=== PATIENT | male | born 1960 | race African-American/Black ===

== ENCOUNTER 2018-02-25 01:11 | Inpatient (IN) | payer MEDICAID, OTHER ==
[~2018-02-25] VITALS: Ht 177.8 cm; Wt 57.2 kg
[~2018-02-25 01:11] MED LIST: HUMULIN 70/30; METFORMIN PO; UNK HTN MED
[2018-02-25] MEDS ORDERED: INSLAN SQ (02:51)
[2018-02-25] MEDS ORDERED: AMIT10TA6 PO (02:51)
[2018-02-25] MEDS ORDERED: PROP10TA73 PO (02:57)
[2018-02-25 03:22] LABS: AMPHET/METH SCREEN,URINE NEGATIVE (NEGATIVE); BARBITURATE SCREEN, URINE NEGATIVE (NEGATIVE); BENZODIAZEPINES SCREEN,URINE NEGATIVE (NEGATIVE); CANNABINOID SCREEN,URINE POSITIVE (NEGATIVE); COCAINE SCREEN,URINE NEGATIVE (NEGATIVE); METHADONE SCREEN, URINE NEGATIVE (NEGATIVE); OPIATE SCREEN,URINE NEGATIVE (NEGATIVE)
[2018-02-25 03:25] LABS: PHENCYCLIDINE SCREEN,URINE NEGATIVE (NEGATIVE)
[2018-02-25] MEDS ORDERED: HALOPERIDOL 5 MG TABLET PO PRN (03:30)
[2018-02-25] MEDS ORDERED: ZOLPIDEM TARTRATE 10 MG TABLET PO PRN (03:30)
[2018-02-25 03:49] LABS: GLUCOSE,POINT OF CARE 168 MG/DL (70-110)
[2018-02-25] MEDS ORDERED: CloNIDine HCL 0.1 MG TABLET PO ONE (04:00)
[2018-02-25 04:14] LABS: EOSINOPHILS % (AUTO) 1.1 % (1.0-6.0); HEMATOCRIT 43.7 % (41-53); HEMOGLOBIN 14.5 g/dL (13.5-17.5); LYMPHOCYTES # (AUTO) 1.9 K/uL (1.0-4.8); LYMPHOCYTES % (AUTO) 23.6 % (22.0-44.0); MEAN CORPUSCULAR HEMOGLOBIN 29.7 pg (26.0-34.0); MEAN CORPUSCULAR HGB CONC 33.3 G/dL (31.0-37.0); MEAN CORPUSCULAR VOLUME 89 fL (80-100); MONOCYTES # (AUTO) 0.4 K/uL (0.1-1.0); MONOCYTES % (AUTO) 4.6 % (2.0-9.0); NEUTROPHILS # (AUTO) 5.5 K/uL (1.8-7.7); NEUTROPHILS % (AUTO) 69.7 % (40.0-70.0); PLATELET COUNT (AUTO) 255 K/uL (150-450)
[2018-02-25 04:21] LABS: ANION GAP 11 mmol/L (8-16); CALCIUM, TOTAL 9.9 mg/dL (8.8-10.5); CARBON DIOXIDE 27 mmol/L (22-29); CHLORIDE 102 mmol/L (98-107); CREATININE 1.12 mg/dL (0.60-1.30); GLOMERULAR FILTR. RATE CALC > 60 mL/min (>60); GLUCOSE,RANDOM 159 mg/dL (70-110); SODIUM SERUM 140 mmol/L (136-145); UREA NITROGEN, BLOOD 15 mg/dL (7-18)
[2018-02-25 04:24] LABS: ALANINE AMINOTRANSFERASE 20 U/L (12-78); ALBUMIN 4.3 g/dL (3.4-5.0); ALKALINE PHOSPHATASE 149 U/L (46-116); ASPARTATE AMINOTRANSFERASE 19 U/L (15-37); BILIRUBIN,TOTAL 0.4 mg/dL (0.1-1.0); TOTAL PROTEIN, SERUM 8.2 g/dL (6.4-8.2)
[2018-02-25 07:09] VITALS: BP 157/98
[2018-02-25 07:29] LABS: GLUCOMETER DEV NAME(LOC) BV3N5; GLUCOSE,POINT OF CARE 139 MG/DL (70-110)
[2018-02-25] MEDS ORDERED: PNEUMOCOCCAL VACCINE POLYVALENT 0.5 ML VIAL [PPSV23] IM ONE (07:30)
[2018-02-25] MEDS ORDERED: AmLODIPine BESYLATE 5 MG TABLET PO ONE ×2 (07:30→11:15)
[2018-02-25 08:11] VITALS: BP 152/67
[2018-02-25 10:13] VITALS: BP 162/87
[2018-02-25] MEDS: QUEtiapine FUMARATE 25 MG TABLET PO SCH ×2 (10:31→17:30)
[2018-02-25] MEDS ORDERED: AmLODIPine BESYLATE 2.5 MG TABLET PO ONE (11:00)
[2018-02-25] MEDS ORDERED: GLUCAGON,HUMAN RECOMBINANT 1 MG VIAL IM PRN (11:15)
[2018-02-25] MEDS ORDERED: METF-960 PO (11:16)
[2018-02-25] MEDS: INSULIN LISPRO 100 UNITS/ML SQ PRN ×3 (12:08→21:14)
[2018-02-25 12:14] LABS: GLUCOMETER DEV NAME(LOC) BV3N5; GLUCOSE,POINT OF CARE 156 MG/DL (70-110)
[2018-02-25 16:11] VITALS: BP 146/80
[2018-02-25] MEDS: LORazepam 2 MG TABLET PO PRN (17:30)
[2018-02-25 17:45] LABS: GLUCOMETER DEV NAME(LOC) BV3N5; GLUCOSE,POINT OF CARE 148 MG/DL (70-110)
[2018-02-25] MEDS: AMITRIPTYLINE HCL 50 MG TABLET PO SCH (20:23)
[2018-02-25 21:23] LABS: GLUCOMETER DEV NAME(LOC) BV2S 2; GLUCOSE,POINT OF CARE 169 MG/DL (70-110)
[2018-02-26 06:30] VITALS: BP 141/86
[2018-02-26 06:44] LABS: GLUCOMETER DEV NAME(LOC) BV2S 2; GLUCOSE,POINT OF CARE 156 MG/DL (70-110)
[2018-02-26] MEDS: INSULIN LISPRO 100 UNITS/ML SQ PRN ×2 (07:21→11:52)
[2018-02-26] MEDS: QUEtiapine FUMARATE 25 MG TABLET PO SCH ×4 (08:30→16:20)
[2018-02-26] MEDS: AmLODIPine BESYLATE 5 MG TABLET PO SCH ×3 (08:30→10:45)
[2018-02-26] MEDS: NICOTINE 21 MG/24 HOUR PATCH TD SCH ×2 (09:00→10:45)
[2018-02-26 09:42] VITALS: BP 139/88
[2018-02-26] MEDS ORDERED: GuaiFENesin/D-METHORPHAN [SUGAR-FREE] 200-20MG/10 ML SYRUP UDCUP PO PRN (10:45)
[2018-02-26] MEDS ORDERED: MAG HYDROX/AL HYDROX/SIMETH ES 30 ML SUSPENSION UDCUP PO PRN (10:45)
[2018-02-26] MEDS ORDERED: IBUPROFEN 400 MG TABLET PO PRN (10:45)
[2018-02-26] MEDS ORDERED: ONDANSETRON HCL 4 MG TABLET PO PRN (10:45)
[2018-02-26] MEDS ORDERED: ACETAMINOPHEN 325 MG TABLET PO PRN (10:45)
[2018-02-26] MEDS ORDERED: LOPERAMIDE HCL 2 MG CAPSULE PO PRN (10:45)
[2018-02-26] MEDS ORDERED: PETROLATUM,WHITE 71 GM JELLY TP PRN (10:45)
[2018-02-26] MEDS ORDERED: DOCUSATE SODIUM 100 MG CAPSULE PO PRN (10:45)
[2018-02-26] MEDS ORDERED: CloNIDine HCL 0.1 MG TABLET PO PRN (10:45)
[2018-02-26] MEDS ORDERED: MAGNESIUM HYDROXIDE SUSPENSION 30 ML UDCUP PO PRN (10:45)
[2018-02-26] MEDS ORDERED: NICOTINE 14 MG/24 HOUR PATCH TD PRN (10:45)
[2018-02-26] MEDS ORDERED: ALBUTEROL SULFATE HFA 90 MCG/PUFF 8 GM INHALER IH PRN (10:45)
[2018-02-26 10:54] LABS: GLUCOMETER DEV NAME(LOC) BV2S 2; GLUCOSE,POINT OF CARE 143 MG/DL (70-110)
[2018-02-26 16:11] VITALS: BP 130/80
[2018-02-26 16:34] LABS: GLUCOMETER DEV NAME(LOC) BV2S 2; GLUCOSE,POINT OF CARE 121 MG/DL (70-110)
[2018-02-26] MEDS: AMITRIPTYLINE HCL 50 MG TABLET PO SCH (20:23)
[2018-02-27 00:58] VITALS: BP 135/80
[2018-02-27] MEDS: INSULIN LISPRO 100 UNITS/ML SQ PRN ×3 (07:04→16:27)
[2018-02-27] MEDS: QUEtiapine FUMARATE 25 MG TABLET PO SCH (08:14)
[2018-02-27] MEDS: AmLODIPine BESYLATE 5 MG TABLET PO SCH (08:14)
[2018-02-27] MEDS: NICOTINE 21 MG/24 HOUR PATCH TD SCH (08:19)
[2018-02-27 09:11] VITALS: BP 171/109
[2018-02-27] MEDS: LORazepam 2 MG TABLET PO PRN (09:44)
[2018-02-27 10:07] VITALS: BP 110/55
[2018-02-27 11:31] LABS: GLUCOMETER DEV NAME(LOC) BV2S 2; GLUCOSE,POINT OF CARE 189 MG/DL (70-110)
[2018-02-27 11:32] LABS: GLUCOMETER DEV NAME(LOC) BV2S 2; GLUCOSE,POINT OF CARE 141 MG/DL (70-110)
[2018-02-27 11:32] LABS: GLUCOMETER DEV NAME(LOC) BV2S 2; GLUCOSE,POINT OF CARE 144 MG/DL (70-110)
[2018-02-27 16:09] VITALS: BP 150/72
[2018-02-27] MEDS: QUEtiapine FUMARATE 100 MG TABLET PO SCH (16:21)
[2018-02-27 16:34] LABS: GLUCOMETER DEV NAME(LOC) BV2S 2; GLUCOSE,POINT OF CARE 142 MG/DL (70-110)
[2018-02-27] MEDS: AMITRIPTYLINE HCL 50 MG TABLET PO SCH (21:03)
[2018-02-27 21:29] LABS: GLUCOMETER DEV NAME(LOC) BV2S 2; GLUCOSE,POINT OF CARE 84 MG/DL (70-110)
[2018-02-28 06:25] LABS: GLUCOMETER DEV NAME(LOC) BV2S 2; GLUCOSE,POINT OF CARE 80 MG/DL (70-110)
[2018-02-28 06:40] VITALS: BP 127/85
[2018-02-28] MEDS ORDERED: MetFORMIN HCL 500 MG TABLET PO SCH (07:00)
[2018-02-28 08:46] VITALS: BP 121/83
[2018-02-28] MEDS: NICOTINE 21 MG/24 HOUR PATCH TD SCH (08:49)
[2018-02-28] MEDS: AmLODIPine BESYLATE 5 MG TABLET PO SCH (08:49)
[2018-02-28] MEDS: QUEtiapine FUMARATE 100 MG TABLET PO SCH (08:49)
[2018-02-28 11:29] LABS: GLUCOMETER DEV NAME(LOC) BV2S 2; GLUCOSE,POINT OF CARE 145 MG/DL (70-110)
[2018-02-28] MEDS: INSULIN LISPRO 100 UNITS/ML SQ PRN (11:29)
[2018-02-28] MEDS ORDERED: QUET100T PO (12:23)
[2018-02-28] MEDS ORDERED: AMIT50TA3 PO (12:23)
[2018-02-28] MEDS ORDERED: METF-960 PO ×2 (12:23→12:31)
[2018-02-28] MEDS ORDERED: AMLO-511 PO (12:23)
== END 2018-02-28 13:25 | disposition home or self-care (01) | DRG 753 ==
LOC: EMS 01:12 → B3A 04:00 → B2S 18:00
PROVIDERS: ADMIT Psychiatry & Neurology Psychiatry; ATTEND Psychiatry & Neurology Psychiatry
DX: F31.32 Bipolar disorder, current episode depressed, moderate (principal); R45.850 Homicidal ideations; R45.851 Suicidal ideations; I10 Essential (primary) hypertension; G89.29 Other chronic pain; F17.210 Nicotine dependence, cigarettes, uncomplicated; F10.10 Alcohol abuse, uncomplicated; M54.9 Dorsalgia, unspecified; E11.9 Type 2 diabetes mellitus without complications; Z79.899 Other long term (current) drug therapy
CPT/HCPCS: 83036; 99285; G0480

== ENCOUNTER 2019-05-08 19:11 | Inpatient (IN) | payer MEDICAID, OTHER ==
[~2019-05-08] VITALS: Ht 172.7 cm; Wt 61.4 kg
[~2019-05-08 19:11] MED LIST changes: +AMIT50TA3 PO; +AMLO5TAB9 PO; -HUMULIN 70/30; +INSLAN SQ; +METF-960 PO; -METFORMIN PO; +QUET100T PO; -UNK HTN MED
[2019-05-08] MEDS ORDERED: ZOLPIDEM TARTRATE 10 MG TABLET PO PRN (19:30)
[2019-05-08] MEDS ORDERED: HALOPERIDOL 5 MG TABLET PO PRN (19:30)
[2019-05-08] MEDS ORDERED: LORazepam 2 MG TABLET PO PRN (19:30)
[2019-05-08 20:08] VITALS: BP 152/89
[2019-05-08] MEDS ORDERED: AmLODIPine BESYLATE 5 MG TABLET PO ONE (20:30)
[2019-05-08] MEDS ORDERED: ALBUTEROL SULFATE 2.5 MG/0.5 ML NEB SOLUTION NEB PRN (20:30)
[2019-05-08] MEDS: AMITRIPTYLINE HCL 50 MG TABLET PO SCH (20:58)
[2019-05-08] MEDS: GABAPENTIN 100 MG CAPSULE PO SCH (20:58)
[2019-05-08] MEDS: DIVALPROEX SODIUM 500 MG DR TABLET PO SCH (20:58)
[2019-05-08] MEDS: QUEtiapine FUMARATE 100 MG TABLET PO SCH (20:59)
[2019-05-08] MEDS: METOPROLOL TARTRATE 25 MG TABLET PO SCH (20:59)
[2019-05-09] MEDS: MetFORMIN HCL 500 MG TABLET PO SCH (07:09)
[2019-05-09] MEDS: PANTOPRAZOLE SODIUM 40 MG DR TABLET PO SCH (08:19)
[2019-05-09] MEDS: ASPIRIN 81 MG CHEWABLE TABLET PO SCH (08:20)
[2019-05-09] MEDS: METOPROLOL TARTRATE 25 MG TABLET PO SCH ×2 (08:20→20:45)
[2019-05-09] MEDS: DIVALPROEX SODIUM 500 MG DR TABLET PO SCH ×2 (08:20→17:38)
[2019-05-09] MEDS: GABAPENTIN 100 MG CAPSULE PO SCH ×2 (08:20→20:45)
[2019-05-09 08:48] VITALS: BP 138/75
[2019-05-09] MEDS: DOCUSATE SODIUM 100 MG CAPSULE PO SCH ×2 (09:00→17:00)
[2019-05-09] MEDS: INSULIN GLARGINE,HUM.REC.ANLOG 100 UNITS/ML SQ SCH ×2 (09:00→17:41)
[2019-05-09] MEDS: QUEtiapine FUMARATE 100 MG TABLET PO SCH ×2 (09:00→17:00)
[2019-05-09 09:25] LABS: GLUCOMETER DEV NAME(LOC) 3E.C; GLUCOSE,POINT OF CARE 242 MG/DL (70-110)
[2019-05-09] MEDS ORDERED: ALBUTEROL SULFATE HFA 90 MCG/PUFF 8 GM INHALER IH PRN (12:45)
[2019-05-09] MEDS ORDERED: CloNIDine HCL 0.1 MG TABLET PO PRN (12:45)
[2019-05-09] MEDS ORDERED: MAGNESIUM HYDROXIDE SUSPENSION 30 ML UDCUP PO PRN (12:45)
[2019-05-09] MEDS ORDERED: MAG HYDROX/AL HYDROX/SIMETH ES 30 ML SUSPENSION UDCUP PO PRN (12:45)
[2019-05-09] MEDS ORDERED: DOCUSATE SODIUM 100 MG CAPSULE PO PRN (12:45)
[2019-05-09] MEDS ORDERED: IBUPROFEN 400 MG TABLET PO PRN (12:45)
[2019-05-09] MEDS ORDERED: ACETAMINOPHEN 325 MG TABLET PO PRN (12:45)
[2019-05-09] MEDS ORDERED: NICOTINE 14 MG/24 HOUR PATCH TD PRN (12:45)
[2019-05-09] MEDS ORDERED: PETROLATUM,WHITE 28 GM JELLY TP PRN (12:45)
[2019-05-09] MEDS ORDERED: GuaiFENesin/D-METHORPHAN [SUGAR-FREE] 200-20MG/10 ML SYRUP UDCUP PO PRN (12:45)
[2019-05-09] MEDS ORDERED: ONDANSETRON HCL 4 MG TABLET PO PRN (12:45)
[2019-05-09] MEDS ORDERED: LOPERAMIDE HCL 2 MG CAPSULE PO PRN (12:45)
[2019-05-09] MEDS ORDERED: GLUCAGON,HUMAN RECOMBINANT 1 MG VIAL IM PRN (14:45)
[2019-05-09] MEDS ORDERED: INSULIN LISPRO 100 UNITS/ML SQ PRN (14:45)
[2019-05-09] MEDS ORDERED: DEXTROSE 50%-WATER 25 GM/50 ML SYG IVP PRN (14:45)
[2019-05-09] MEDS: INSULIN LISPRO 100 UNITS/ML SQ PRN ×2 (17:42→21:06)
[2019-05-09 17:48] LABS: GLUCOMETER DEV NAME(LOC) 3E.C; GLUCOSE,POINT OF CARE 207 MG/DL (70-110)
[2019-05-09] MEDS: AMITRIPTYLINE HCL 50 MG TABLET PO SCH (20:44)
[2019-05-09 20:45] VITALS: BP 136/84
[2019-05-09 21:01] LABS: GLUCOMETER DEV NAME(LOC) 3E.C; GLUCOSE,POINT OF CARE 205 MG/DL (70-110)
[2019-05-10 06:22] LABS: GLUCOMETER DEV NAME(LOC) 3E.C; GLUCOSE,POINT OF CARE 222 MG/DL (70-110)
[2019-05-10] MEDS: MetFORMIN HCL 500 MG TABLET PO SCH (07:02)
[2019-05-10] MEDS: INSULIN LISPRO 100 UNITS/ML SQ PRN ×3 (07:05→21:35)
[2019-05-10 08:45] VITALS: BP 151/79
[2019-05-10] MEDS: QUEtiapine FUMARATE 100 MG TABLET PO SCH (09:00)
[2019-05-10] MEDS: PANTOPRAZOLE SODIUM 40 MG DR TABLET PO SCH (09:03)
[2019-05-10] MEDS: GABAPENTIN 100 MG CAPSULE PO SCH ×2 (09:04→21:17)
[2019-05-10] MEDS: ASPIRIN 81 MG CHEWABLE TABLET PO SCH (09:04)
[2019-05-10] MEDS: DOCUSATE SODIUM 100 MG CAPSULE PO SCH ×2 (09:04→17:48)
[2019-05-10] MEDS: DIVALPROEX SODIUM 500 MG DR TABLET PO SCH ×2 (09:05→17:48)
[2019-05-10] MEDS: METOPROLOL TARTRATE 25 MG TABLET PO SCH ×2 (09:05→21:17)
[2019-05-10] MEDS: INSULIN GLARGINE,HUM.REC.ANLOG 100 UNITS/ML SQ SCH ×2 (09:25→17:54)
[2019-05-10 11:48] LABS: GLUCOMETER DEV NAME(LOC) 3E.C; GLUCOSE,POINT OF CARE 136 MG/DL (70-110)
[2019-05-10] MEDS: MUPIROCIN CALCIUM 2% 22 GM OINTMENT NASAL SCH (17:48)
[2019-05-10 18:04] LABS: GLUCOMETER DEV NAME(LOC) 3E.C; GLUCOSE,POINT OF CARE 166 MG/DL (70-110)
[2019-05-10 19:09] VITALS: BP 135/80
[2019-05-10] MEDS: AMITRIPTYLINE HCL 50 MG TABLET PO SCH (21:17)
[2019-05-10 21:50] LABS: GLUCOMETER DEV NAME(LOC) 3E.C; GLUCOSE,POINT OF CARE 176 MG/DL (70-110)
[2019-05-11 06:06] LABS: GLUCOMETER DEV NAME(LOC) 3E.C; GLUCOSE,POINT OF CARE 176 MG/DL (70-110)
[2019-05-11] MEDS: MetFORMIN HCL 500 MG TABLET PO SCH (07:02)
[2019-05-11] MEDS: INSULIN LISPRO 100 UNITS/ML SQ PRN ×3 (07:05→21:29)
[2019-05-11] MEDS: PANTOPRAZOLE SODIUM 40 MG DR TABLET PO SCH (09:46)
[2019-05-11] MEDS: DIVALPROEX SODIUM 500 MG DR TABLET PO SCH ×2 (09:46→16:53)
[2019-05-11] MEDS: ASPIRIN 81 MG CHEWABLE TABLET PO SCH (09:46)
[2019-05-11] MEDS: METOPROLOL TARTRATE 25 MG TABLET PO SCH ×2 (09:46→20:50)
[2019-05-11] MEDS: GABAPENTIN 100 MG CAPSULE PO SCH ×2 (09:47→20:49)
[2019-05-11] MEDS: MUPIROCIN CALCIUM 2% 22 GM OINTMENT NASAL SCH ×2 (09:47→16:52)
[2019-05-11] MEDS: DOCUSATE SODIUM 100 MG CAPSULE PO SCH ×2 (09:49→16:53)
[2019-05-11] MEDS: INSULIN GLARGINE,HUM.REC.ANLOG 100 UNITS/ML SQ SCH ×2 (09:53→17:37)
[2019-05-11 11:59] LABS: GLUCOMETER DEV NAME(LOC) 3E.C; GLUCOSE,POINT OF CARE 135 MG/DL (70-110)
[2019-05-11 17:01] LABS: GLUCOMETER DEV NAME(LOC) 3E.C; GLUCOSE,POINT OF CARE 160 MG/DL (70-110)
[2019-05-11 18:33] VITALS: BP 102/76
[2019-05-11 20:48] VITALS: BP 126/72
[2019-05-11] MEDS: AMITRIPTYLINE HCL 50 MG TABLET PO SCH (20:49)
[2019-05-11 20:54] LABS: GLUCOMETER DEV NAME(LOC) 3E.C; GLUCOSE,POINT OF CARE 170 MG/DL (70-110)
[2019-05-12 06:46] LABS: GLUCOMETER DEV NAME(LOC) 3E.C; GLUCOSE,POINT OF CARE 78 MG/DL (70-110)
[2019-05-12] MEDS: MetFORMIN HCL 500 MG TABLET PO SCH (06:50)
[2019-05-12] MEDS: INSULIN GLARGINE,HUM.REC.ANLOG 100 UNITS/ML SQ SCH ×2 (09:07→18:01)
[2019-05-12 09:10] VITALS: BP 180/107
[2019-05-12] MEDS: PANTOPRAZOLE SODIUM 40 MG DR TABLET PO SCH (09:11)
[2019-05-12] MEDS: DOCUSATE SODIUM 100 MG CAPSULE PO SCH ×2 (09:11→18:03)
[2019-05-12] MEDS: GABAPENTIN 100 MG CAPSULE PO SCH ×2 (09:11→21:18)
[2019-05-12] MEDS: DIVALPROEX SODIUM 500 MG DR TABLET PO SCH ×2 (09:11→18:03)
[2019-05-12] MEDS: ASPIRIN 81 MG CHEWABLE TABLET PO SCH (09:11)
[2019-05-12] MEDS: MUPIROCIN CALCIUM 2% 22 GM OINTMENT NASAL SCH ×2 (09:12→18:04)
[2019-05-12] MEDS: METOPROLOL TARTRATE 25 MG TABLET PO SCH ×2 (09:12→21:17)
[2019-05-12 11:57] LABS: GLUCOMETER DEV NAME(LOC) 3E.C; GLUCOSE,POINT OF CARE 157 MG/DL (70-110)
[2019-05-12 16:00] VITALS: BP 108/68
[2019-05-12 17:02] LABS: GLUCOMETER DEV NAME(LOC) 3E.C; GLUCOSE,POINT OF CARE 173 MG/DL (70-110)
[2019-05-12] MEDS: INSULIN LISPRO 100 UNITS/ML SQ PRN ×2 (18:01→21:28)
[2019-05-12] MEDS: AMITRIPTYLINE HCL 50 MG TABLET PO SCH (21:18)
[2019-05-12 21:39] LABS: GLUCOMETER DEV NAME(LOC) 3E.C; GLUCOSE,POINT OF CARE 142 MG/DL (70-110)
[2019-05-13] MEDS: MetFORMIN HCL 500 MG TABLET PO SCH (06:54)
[2019-05-13 07:03] LABS: GLUCOMETER DEV NAME(LOC) 3E.C; GLUCOSE,POINT OF CARE 85 MG/DL (70-110)
[2019-05-13] MEDS: GABAPENTIN 100 MG CAPSULE PO SCH ×2 (08:38→21:02)
[2019-05-13] MEDS: ASPIRIN 81 MG CHEWABLE TABLET PO SCH (08:38)
[2019-05-13] MEDS: METOPROLOL TARTRATE 25 MG TABLET PO SCH ×2 (08:38→21:01)
[2019-05-13] MEDS: DIVALPROEX SODIUM 500 MG DR TABLET PO SCH ×2 (08:38→17:25)
[2019-05-13] MEDS: PANTOPRAZOLE SODIUM 40 MG DR TABLET PO SCH (08:38)
[2019-05-13] MEDS: MUPIROCIN CALCIUM 2% 22 GM OINTMENT NASAL SCH ×2 (08:39→17:26)
[2019-05-13] MEDS: INSULIN GLARGINE,HUM.REC.ANLOG 100 UNITS/ML SQ SCH ×2 (08:48→17:41)
[2019-05-13] MEDS: DOCUSATE SODIUM 100 MG CAPSULE PO SCH ×2 (09:00→17:00)
[2019-05-13 10:31] VITALS: BP 179/100
[2019-05-13 11:48] LABS: GLUCOMETER DEV NAME(LOC) 3E.C; GLUCOSE,POINT OF CARE 169 MG/DL (70-110)
[2019-05-13] MEDS: INSULIN LISPRO 100 UNITS/ML SQ PRN ×3 (11:56→21:03)
[2019-05-13 12:29] VITALS: BP 134/78
[2019-05-13 16:32] VITALS: BP 126/70
[2019-05-13 17:06] LABS: GLUCOMETER DEV NAME(LOC) 3E.C; GLUCOSE,POINT OF CARE 218 MG/DL (70-110)
[2019-05-13 20:52] LABS: GLUCOMETER DEV NAME(LOC) 3E.C; GLUCOSE,POINT OF CARE 165 MG/DL (70-110)
[2019-05-13 20:59] VITALS: BP 133/77
[2019-05-13] MEDS: AMITRIPTYLINE HCL 50 MG TABLET PO SCH (21:01)
[2019-05-14 06:48] LABS: GLUCOMETER DEV NAME(LOC) 3E.C; GLUCOSE,POINT OF CARE 170 MG/DL (70-110)
[2019-05-14] MEDS: MetFORMIN HCL 500 MG TABLET PO SCH (07:01)
[2019-05-14] MEDS: INSULIN LISPRO 100 UNITS/ML SQ PRN ×4 (07:03→20:46)
[2019-05-14] MEDS: PANTOPRAZOLE SODIUM 40 MG DR TABLET PO SCH (08:21)
[2019-05-14] MEDS: GABAPENTIN 100 MG CAPSULE PO SCH ×2 (08:21→20:43)
[2019-05-14] MEDS: METOPROLOL TARTRATE 25 MG TABLET PO SCH ×2 (08:22→20:42)
[2019-05-14] MEDS: DIVALPROEX SODIUM 500 MG DR TABLET PO SCH ×2 (08:22→17:12)
[2019-05-14] MEDS: ASPIRIN 81 MG CHEWABLE TABLET PO SCH (08:22)
[2019-05-14] MEDS: MUPIROCIN CALCIUM 2% 22 GM OINTMENT NASAL SCH ×2 (08:23→17:12)
[2019-05-14] MEDS: DOCUSATE SODIUM 100 MG CAPSULE PO SCH ×2 (08:32→16:46)
[2019-05-14] MEDS: INSULIN GLARGINE,HUM.REC.ANLOG 100 UNITS/ML SQ SCH ×2 (09:55→17:30)
[2019-05-14] MEDS: BACITRACIN 28.4 GM OINTMENT TP SCH (09:58)
[2019-05-14 10:06] VITALS: BP 140/82
[2019-05-14 11:29] LABS: GLUCOMETER DEV NAME(LOC) 3E.C; GLUCOSE,POINT OF CARE 149 MG/DL (70-110)
[2019-05-14 16:54] LABS: GLUCOMETER DEV NAME(LOC) 3E.C; GLUCOSE,POINT OF CARE 214 MG/DL (70-110)
[2019-05-14 20:41] VITALS: BP 149/77
[2019-05-14] MEDS: AMITRIPTYLINE HCL 50 MG TABLET PO SCH (20:42)
[2019-05-14 21:06] LABS: GLUCOMETER DEV NAME(LOC) 3E.C; GLUCOSE,POINT OF CARE 295 MG/DL (70-110)
[2019-05-15 06:39] LABS: GLUCOMETER DEV NAME(LOC) 3E.C; GLUCOSE,POINT OF CARE 205 MG/DL (70-110)
[2019-05-15] MEDS: MetFORMIN HCL 500 MG TABLET PO SCH (07:02)
[2019-05-15] MEDS: INSULIN LISPRO 100 UNITS/ML SQ PRN ×4 (07:04→20:38)
[2019-05-15 08:37] VITALS: BP 135/83
[2019-05-15] MEDS: DIVALPROEX SODIUM 500 MG DR TABLET PO SCH ×2 (08:49→16:22)
[2019-05-15] MEDS: GABAPENTIN 100 MG CAPSULE PO SCH ×2 (08:49→20:39)
[2019-05-15] MEDS: METOPROLOL TARTRATE 25 MG TABLET PO SCH ×2 (08:49→20:39)
[2019-05-15] MEDS: DOCUSATE SODIUM 100 MG CAPSULE PO SCH ×2 (08:49→16:22)
[2019-05-15] MEDS: ASPIRIN 81 MG CHEWABLE TABLET PO SCH (08:49)
[2019-05-15] MEDS: PANTOPRAZOLE SODIUM 40 MG DR TABLET PO SCH (08:49)
[2019-05-15] MEDS: BACITRACIN 28.4 GM OINTMENT TP SCH (08:52)
[2019-05-15] MEDS: MUPIROCIN CALCIUM 2% 22 GM OINTMENT NASAL SCH (08:52)
[2019-05-15] MEDS: INSULIN GLARGINE,HUM.REC.ANLOG 100 UNITS/ML SQ SCH ×2 (09:15→17:48)
[2019-05-15 11:22] LABS: GLUCOMETER DEV NAME(LOC) 3E.C; GLUCOSE,POINT OF CARE 184 MG/DL (70-110)
[2019-05-15 16:38] LABS: GLUCOMETER DEV NAME(LOC) 3E.C; GLUCOSE,POINT OF CARE 254 MG/DL (70-110)
[2019-05-15 20:26] VITALS: BP 142/72
[2019-05-15] MEDS: AMITRIPTYLINE HCL 50 MG TABLET PO SCH (20:39)
[2019-05-15 20:43] LABS: GLUCOMETER DEV NAME(LOC) 3E.C; GLUCOSE,POINT OF CARE 234 MG/DL (70-110)
[2019-05-16 06:38] LABS: GLUCOMETER DEV NAME(LOC) 3E.C; GLUCOSE,POINT OF CARE 273 MG/DL (70-110)
[2019-05-16] MEDS: MetFORMIN HCL 500 MG TABLET PO SCH (06:52)
[2019-05-16] MEDS: INSULIN LISPRO 100 UNITS/ML SQ PRN ×2 (06:54→11:45)
[2019-05-16] MEDS: PANTOPRAZOLE SODIUM 40 MG DR TABLET PO SCH (08:16)
[2019-05-16] MEDS: DOCUSATE SODIUM 100 MG CAPSULE PO SCH ×2 (08:16→16:55)
[2019-05-16] MEDS: DIVALPROEX SODIUM 500 MG DR TABLET PO SCH ×2 (08:16→16:54)
[2019-05-16] MEDS: ASPIRIN 81 MG CHEWABLE TABLET PO SCH (08:17)
[2019-05-16] MEDS: METOPROLOL TARTRATE 25 MG TABLET PO SCH (08:17)
[2019-05-16] MEDS: GABAPENTIN 100 MG CAPSULE PO SCH (08:20)
[2019-05-16] MEDS: BACITRACIN 28.4 GM OINTMENT TP SCH (08:21)
[2019-05-16 08:47] VITALS: BP 142/90
[2019-05-16] MEDS: INSULIN GLARGINE,HUM.REC.ANLOG 100 UNITS/ML SQ SCH (08:48)
[2019-05-16 08:55] LABS: GLUCOMETER DEV NAME(LOC) 3E.C; GLUCOSE,POINT OF CARE 182 MG/DL (70-110)
[2019-05-16] MEDS ORDERED: DIVA250T4 PO (12:28)
[2019-05-16] MEDS ORDERED: GABA-529 PO (12:29)
[2019-05-16] MEDS ORDERED: PANT40TA25 PO (12:34)
[2019-05-16] MEDS ORDERED: METO25 PO (12:35)
[2019-05-16] MEDS ORDERED: DOCU-275 PO (12:36)
[2019-05-16] MEDS ORDERED: BACI3.5O22 OP (12:37)
[2019-05-16] MEDS ORDERED: ASPI81 PO (12:38)
[2019-05-16 12:49] LABS: GLUCOMETER DEV NAME(LOC) 3E.C; GLUCOSE,POINT OF CARE 139 MG/DL (70-110)
[2019-05-16 16:00] VITALS: BP 157/81
[2019-05-17] MEDS ORDERED: NEOMYCIN/BACITRACIN/POLYMYXIN B 30 GM OINTMENT TP SCH (09:00)
== END 2019-05-16 18:30 | disposition home or self-care (01) | DRG 885 ==
LOC: 3EC 19:15
PROVIDERS: ADMIT Psychiatry & Neurology Psychiatry; ATTEND Psychiatry & Neurology Psychiatry
DX: F25.9 Schizoaffective disorder, unspecified (principal); R45.851 Suicidal ideations; F31.9 Bipolar disorder, unspecified; E11.51 Type 2 diabetes mellitus with diabetic peripheral angiopathy without gangrene; E78.5 Hyperlipidemia, unspecified; F10.10 Alcohol abuse, uncomplicated; Z71.41 Alcohol abuse counseling and surveillance of alcoholic; F12.90 Cannabis use, unspecified, uncomplicated; F17.200 Nicotine dependence, unspecified, uncomplicated; Z71.6 Tobacco abuse counseling; I10 Essential (primary) hypertension; J45.909 Unspecified asthma, uncomplicated; K21.9 Gastro-esophageal reflux disease without esophagitis; Z79.899 Other long term (current) drug therapy; Z89.511 Acquired absence of right leg below knee
CPT/HCPCS: 87081; J1815